=== PATIENT | male | born 1970 | race Caucasian/White ===

== ENCOUNTER 2022-09-22 13:36 | Outpatient (CLI) | payer MEDICAID, SELFPAY | END 2022-09-22 13:37 | disposition home or self-care (01) | PROVIDERS: Visit Provider Family Medicine | DX: S09.90XA Unspecified injury of head, initial encounter (principal); W00.0XXA Fall on same level due to ice and snow, initial encounter; Y92.9 Unspecified place or not applicable | CPT/HCPCS: A0425; A0427 ==

== ENCOUNTER 2022-09-22 14:17 | Emergency (ER) | payer MEDICAID, SELFPAY ==
[2022-09-22] VITALS (11 sets, daily range): BP systolic 131–155; BP diastolic 89–98; PULSE 70–81; RESP 20; TEMP 36.2; O2SAT 97–99; BMI 26.9
--- NOTE | 2022-09-22 | CRLHL7_ITS ---
For Patients: As a result of the Cures Act, medical imaging exams and procedure reports are released immediately into your electronic medical record. You may view this report before your referring provider. If you have questions, please contact your health care provider. DATE: 09/22/2022. CLINICAL HISTORY: Trauma. TECHNIQUE: Standard helical CT image acquisition of the brain was performed. COMPARISON: None available. FINDINGS: There is no intracranial hemorrhage. No extra-axial collection, mass effect, or midline shift. Olvera-white matter differentiation is preserved. The ventricles are normal in size and morphology for patient age. No displaced calvarial fracture. Surgical plate and screw fixation along the anterior wall of the right maxillary sinus as well as the frontal process of the right zygoma. The orbits are unremarkable. The paranasal sinuses are unremarkable. The mastoid air cells are unremarkable. The soft tissues are unremarkable. IMPRESSION: No CT evidence of acute intracranial abnormality or closed-head injury. Please note that all CT scans at this facility use dose modulation, iterative reconstruction, and/or weight-based dosing when appropriate to reduce radiation dose to as low as reasonably achievable. Dictated by Ken Greene MD @ 09/22/2022 2:51:20 PM (Electronically Signed)
--- NOTE | 2022-09-22 14:41 | CRLHL7_ITS ---
For Patients: As a result of the Cures Act, medical imaging exams and procedure reports are released immediately into your electronic medical record. You may view this report before your referring provider. If you have questions, please contact your health care provider. DATE: 09/22/2022. CLINICAL HISTORY: Fall. TECHNIQUE: Helical CT acquisition of the cervical spine was performed. Coronal and sagittal reformations were performed and interpreted. COMPARISON: None available. FINDINGS: There is no evidence of acute displaced fracture or traumatic malalignment of the cervical spine. The facets are well aligned. Vertebral body heights are maintained without evidence of significant compression deformity. No evidence of significant trauma at the craniocervical junction. Cervical spondylosis. Uncovertebral hypertrophy and facet arthropathy results in varying degrees of multilevel foraminal narrowing. No evidence of severe spinal canal stenosis. The visualized prevertebral soft tissues are unremarkable. The visualized lung apices are unremarkable. IMPRESSION: No acute displaced fracture or traumatic malalignment of the cervical spine. Please note that all CT scans at this facility use dose modulation, iterative reconstruction, and/or weight-based dosing when appropriate to reduce radiation dose to as low as reasonably achievable. Dictated by Ken Greene MD @ 09/22/2022 3:46:22 PM (Electronically Signed)
--- NOTE | 2022-09-22 14:45 | ED.GENADULT ---
HPI - General Adult General Time Seen by Provider: 14:45 Date Seen: 09/22/22 Chief complaint: Head Injury/Pain Stated complaint: fall w/ head injury Time Seen by Provider: 09/22/22 14:28 Source: EMS Mode of arrival: EMS Limitations: physical limitation History of Present Illness HPI narrative: Patient is a 52-year-old male with a close head injury history of heroin abuse recently moved from [place] to [place]. He was out walking his dog at 10:30 a.m. this morning he fell back and hit the back of his head. Actually is a little unclear as to where he hit his head ?but he feels nauseated and feels his head is ?throbbing?. States he has some stiffness is neck but that is fairly normal but that may be a little bit worse at this time. He has been on Vyvanse Wellbutrin and Ativan. The patient has no bruising about his head or neck he was brought in by ambulance with a trauma team activation. On presentation he denies any back pain his Nette coma Scale is 15, he does not describe any peripheral injury such as arms or legs. He denies any back pain he does state his neck is a little stiff. Related Data Home Medications Medication Instructions Recorded Confirmed bupropion HCl 300 mg 24 hr tablet, 300 mg PO DAILY 09/22/22 09/22/22 extended release (Wellbutrin XL) lisdexamfetamine 50 mg capsule 50 mg PO DAILY 09/22/22 09/22/22 (Vyvanse) lorazepam 1 mg tablet (Ativan) 1 mg PO Q12H 09/22/22 09/22/22 Previous Rx's Medication Instructions Recorded ondansetron 4 mg disintegrating 4 mg PO Q8H 3 days #9 tabs 09/22/22 tablet Allergies Allergy/AdvReac Type Severity Reaction Status Date / Time fentanyl Allergy Verified 09/22/22 14:41 Review of Systems Status of ROS: Reports: 6 or more systems reviewed and unremarkable except as noted in History and below PFSH PFS Social History Smoking Status: Never smoker Do you use any of these nicotine containing products: None Second hand tobacco smoke exposure: No How often do you have a drink containing alcohol: never How often do you have six or more drinks on one occasion: Never AUDIT-C Alcohol total score: 0 Non-prescribed substance use: denies use service: Yes Exam Narrative: Exam Narrative: Objective: Vital signs unremarkable Patient is in no distress, he has no obvious signs of trauma about his head he has got no redness or warmth no step-offs no bruising noted. He has no milk real midline neck tenderness he describes little bit of pain at the base of his neck bilaterally to cervical strap muscle trapezius junction. He has got full range of motion of his neck without tenderness. Neurologic nonfocal chest back abdomen upper lower extremities unremarkable, moving all fours and neurologically intact Const: Vital Signs, click to edit/add: Vital Signs - 24 hr 09/22/22 14:34 09/22/22 14:37 09/22/22 14:38 Temperature 97.1 F L Pulse Rate 81 81 Respiratory Rate 20 Blood Pressure 152/98 H Blood Pressure [Ri ght Upper Arm] 152/98 H Pulse Oximetry 99 99 98 Oxygen Delivery Me thod Room Air 09/22/22 14:41 09/22/22 14:45 09/22/22 14:51 Temperature Pulse Rate 75 80 74 Respiratory Rate Blood Pressure 155/97 H 137/91 H Blood Pressure [Ri ght Upper Arm] Pulse Oximetry 99 98 99 Oxygen Delivery Me thod 09/22/22 15:00 09/22/22 15:01 09/22/22 15:12 Temperature Pulse Rate 72 74 73 Respiratory Rate Blood Pressure 135/89 135/89 Blood Pressure [Ri ght Upper Arm] Pulse Oximetry 99 98 97 Oxygen Delivery Me thod 09/22/22 15:15 09/22/22 15:22 Temperature Pulse Rate 71 70 Respiratory Rate Blood Pressure 131/93 H Blood Pressure [Ri ght Upper Arm] Pulse Oximetry 98 98 Oxygen Delivery Me thod Course Vital Signs Vital signs: Initial Vital Signs Temperature 97.1 F L 09/22/22 14:34 Temperature Source Temporal Artery Scan 09/22/22 14:34 Respiratory Rate 20 09/22/22 14:34 Blood Pressure 152/98 H 09/22/22 14:34 Blood Pressure Mean 116 09/22/22 14:34 Blood Pressure Position High-Fowlers 09/22/22 14:34 Pulse Oximetry 99 09/22/22 14:34 Oxygen Delivery Method 09/22/22 14:34 Vital Signs Temperature 97.1 F L 09/22/22 14:34 Respiratory Rate 20 09/22/22 14:34 Blood Pressure 152/98 H 09/22/22 14:34 Pulse Oximetry 99 09/22/22 14:34 Oxygen Delivery Method 09/22/22 14:34 Temperature 97.1 F L 09/22/22 14:34 Pulse Rate 70 09/22/22 15:22 Respiratory Rate 20 09/22/22 14:34 Blood Pressure 131/93 H 09/22/22 15:22 Pulse Oximetry 98 09/22/22 15:22 Oxygen Delivery Method 09/22/22 14:34 Medical Decision Making MDM Narrative Medical decision making narrative: [age] year white male with history of here and heroin abuse in the past recently moved to [place], with a close head injury by his report. He fell apparently while walking his dog this morning, complains of some nausea and head pain, minimal neck discomfort. At this point I think it be reasonable given his head injury in his prior injuries to do a CT scan of his head neck and disposition pending findings. Because I believe there is a low likelihood of in significant injury given there is no external findings I think it be reasonable to give him some Toradol and Zofran for his discomfort and for his nausea will give the ODT Zofran. Disposition pending his findings on CT of the head and neck. My preliminary review of his head CT looks unremarkable Addendum: Patient has a negative CT scan of the head and neck. Would recommend observation, Tylenol as needed, fluids, recheck with primary care in the next couple of days certainly sooner problems or concerns. Discharge Plan Discharge Clinical Impression: Closed head injury Patient Disposition: Home, Self-Care Condition: Stable Additional Instructions: Rest, light activity, avoid any further head injury, Tylenol as needed, Zofran as needed. Follow up with primary care doctor in the next couple of days for recheck, return to ED sooner problems or concerns. Activity Level: Light activity Discharge Diet: Regular Prescriptions: New ondansetron 4 mg tablet,disintegrating 4 mg PO Q8H 3 Days Qty: 9 0RF No Action Vyvanse 50 mg capsule 50 mg PO DAILY lorazepam [Ativan] 1 mg tablet 1 mg PO Q12H Rx Instructions: do not exceed 10 doses per 24 hrs bupropion HCl [Wellbutrin XL] 300 mg tablet extended release 24 hr 300 mg PO DAILY Stand Alone Forms: [employer] Info Instructions
[2022-09-22] MEDS: ONDANSETRON ODT 4 MG TAB PO (15:04)
[2022-09-22] MEDS: KETOROLAC 10 MG TABLET PO (15:04)
== END 2022-09-22 16:10 | disposition home or self-care (01) ==
LOC: ED 15:05
PROVIDERS: Emergency Provider Family Medicine
DX: S09.90XA Unspecified injury of head, initial encounter (principal); W18.30XA Fall on same level, unspecified, initial encounter; Y93.K1 Activity, walking an animal; Y92.410 Unspecified street and highway as the place of occurrence of the external cause; Y99.9 Unspecified external cause status
CPT/HCPCS: 70450; 72125; 99284; 99291; A9270; G0390